=== PATIENT | female | born 1955 | race Caucasian/White ===

== ENCOUNTER → 2022-08-04 | Outpatient (CLI) | payer MEDICARE, OTHER, SELFPAY ==
--- NOTE | 2022-08-04 12:55 | VDLE_ITS ---
Reason For Study: LLE PAIN RIGHT LEFT CFV is compressible, spontaneous, phasic, GSV is normal. competent and demonstrates normal CFV is compressible, spontaneous, phasic, augmentation. competent, and demonstrates normal Procedure augmentation. This is a venous duplex using B-mode, color FV is compressible, spontaneous, phasic, flow and spectral Doppler. competent and demonstrates normal Exam performed in department. augmentation. The exam was diagnostic. POP V is compressible, spontaneous, phasic, A preliminary report was called and/or faxed competent and demonstrates normal to Dr. Roger Ng @ [phone] @ 1:20 augmentation. pm. T/P Trunk is compressible. PTV is compressible. LT PerV is compressible. VL/Venous Duplex US, Unilateral Interpretation Summary Deep veins of the left lower extremity are patent and compressible segmentally. There is no evidence of left lower extremity deep vein thrombosis. The left great saphenous vein haily ears patent and compressible segmentally. Ordering Physician: Roger Ng Referring Physician: OTD Performed By: Karey Calvillo, SILVANA, RVT
== END | disposition home or self-care (01) ==
LOC: CVS 12:53
PROVIDERS: Referring Provider Specialist; Visit Provider Specialist
DX: M79.662 Pain in left lower leg (principal)
CPT/HCPCS: 93971